=== PATIENT | female | born 1935 | race Caucasian/White ===

== ENCOUNTER 2021-07-26 09:16 | Emergency (ER) | payer OTHER ==
[2021-07-26 10:52] LABS: BASOPHIL 0.3 % (0-2); EOSINOPHIL 1.2 % (0-7); HCT 44.6 % (37.0-47.0); HGB 14.4 g/dl (12.5-16.0); LYMPHOCYTE 14.9 % (15-48); MCH 30.9 pg (25.0-31.0); MCHC 32.3 g/dL (32.0-36.0); MCV 95.7 fL (78.0-100.0); MONOCYTE 6.1 % (0-12); MPV 10.8 fL (6.0-9.5); NEUTROPHIL 77.2 % (41-80); NRBC 0; PLT 120 K/uL (150-400); RBC 4.66 M/uL (4.20-5.40); RDW 13.3 % (11.5-14.0); WBC 6.7 K/uL (4.0-10.5)
[2021-07-26 11:23] LABS: BUN/CREAT RATIO (CALC) 20.7 RATIO; CREATININE 0.82 mg/dL (0.51-0.95)
== END 2021-07-26 14:37 | disposition home or self-care (01) ==
LOC: FER 09:16
PROVIDERS: Emergency Medicine
DX: M54.9 Dorsalgia, unspecified (principal); M25.462 Effusion, left knee; I10 Essential (primary) hypertension; F03.90 Unspecified dementia, unspecified severity, without behavioral disturbance, psychotic disturbance, mood disturbance, and anxiety; W19.XXXA Unspecified fall, initial encounter
CPT/HCPCS: 36415; 70450; 71045; 72125; 72170; 80048; 85025; 93005; J3490; J7040